=== PATIENT | male | born 2000 | race Caucasian/White ===

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

== ENCOUNTER 2021-03-20 03:56 | Emergency (ER) | payer SELFPAY ==
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
== END 2021-03-20 04:32 | disposition home or self-care (01) ==
LOC: MW.ED 03:56
DX: Z00.8 Encounter for other general examination (principal)
CPT/HCPCS: 99282; 99283